=== PATIENT | female | born 1980 | race Caucasian/White ===

== ENCOUNTER 2022-05-16 09:56 | Outpatient (CLI) | payer OTHER ==
[2022-05-16 12:39] LABS: #Basophils 0.1 10x3/uL (0.0-0.2); #Eosinphils 0.2 10x3/uL (0.0-0.5); #Monocytes 0.5 10x3/uL (0.0-1.1); #Neutrophils 2.8 10x3/uL (1.5-8.4); %Eosinophils 3.1 % (0.0-6.0); %Lymphocytes 32.5 % (18.0-47.0); %Monocytes 8.7 % (0.0-10.0); %Neutrophils 54.3 % (40.0-75.0); Hemoglobin 10.5 g/dL (12.0-15.5); Mean Corpuscular HGB CONC 30.9 g/dL (32.0-36.0); Mean Corpuscular Hemoglobin 22.1 pg (27.0-33.0); Mean Corpuscular Volume 71.6 fl (81.6-98.3); Mean Platelet Volume 9.7 fl (7.4-10.4); Platelet Count 332 10x3/uL (150-450); Red Blood Cell (RBC) Count 4.75 10x6/uL (3.90-5.03); White Blood Cell (WBC) Count 5.2 10x3/uL (3.5-10.5)
[2022-05-16 13:05] LABS: Anion Gap 11 mmol/L (10-20); BUN (Urea Nitrogen) 11 mg/dL (7.0-18.7); Calc. Creatinine Clearance 0 mL/min (70-130); Calcium 9.4 mg/dL (7.8-10.44); Carbon Dioxide 20 mmol/L (22-29); Chloride 110 mmol/L (98-107); Estimated GFR 101; Glucose 81 mg/dL (70-105); Potassium 4.5 mmol/L (3.5-5.1); Sodium 136 mmol/L (136-145)
== END 2022-05-16 09:57 | disposition home or self-care (01) ==
LOC: CSHLAB 09:56
PROVIDERS: ATTEND Podiatrist Foot & Ankle Surgery
DX: Z01.812 Encounter for preprocedural laboratory examination (principal); M21.611 Bunion of right foot; M77.41 Metatarsalgia, right foot
CPT/HCPCS: 80048; 85025

== ENCOUNTER 2022-05-21 10:07 | Day surgery (SDC) | payer OTHER ==
[2022-05-21] MEDS ORDERED: Lidocaine 1% MPF 2 ML VIAL ONE (11:06)
[2022-05-21] MEDS ORDERED: Midazolam HCl 2 mg/2 ml Vial ONE ×2 (12:48→13:07)
[2022-05-21] MEDS ORDERED: Dexamethasone 4 mg/ml Vial ONE (12:57)
[2022-05-21] MEDS ORDERED: Neomycin-Polymyxin 1 ML AMP ONE (12:57)
[2022-05-21] MEDS ORDERED: Bupivacaine PF 0.5% 30 ML VIAL ONE (12:57)
[2022-05-21] MEDS ORDERED: Dexamethasone 20 MG/5 ML VIAL ONE (13:07)
[2022-05-21] MEDS ORDERED: PROPOFOL 20 ML ONE ×2 (13:07→13:27)
[2022-05-21] MEDS ORDERED: Ondansetron PF 4 MG/2 ML Vial ONE (13:07)
[2022-05-21] MEDS ORDERED: Ketorolac Tromethamine 30 MG/ML VIAL ONE (13:07)
[2022-05-21] MEDS ORDERED: Fentanyl 100 MCG/2 ML VIAL ONE ×3 (13:07→13:09)
[2022-05-21] MEDS ORDERED: Lidocaine 1% PF 5 ML VIAL ONE (13:08)
[2022-05-21 13:10] VITALS: BMI 32.5
[2022-05-21] MEDS ORDERED: CEFAZOLIN 2 GM VIAL ONE (13:13)
[2022-05-21] MEDS ORDERED: Ropivacaine 0.2% 550 ML 550 ML NERVE BLCK SCH (13:15)
[2022-05-21] MEDS ORDERED: Ondansetron PF 4 MG/2 ML Vial IVP PRN (13:15)
[2022-05-21] MEDS ORDERED: Zolpidem Tartrate 5 MG TAB PO PRN (13:15)
[2022-05-21] MEDS ORDERED: Promethazine HCl 25 MG/ML VIAL IM PRN (13:15)
[2022-05-21] MEDS ORDERED: Acetaminophen 500 MG TAB ONE (15:30)
== END 2022-05-21 15:52 | disposition home or self-care (01) ==
LOC: CSHSDC 10:07
PROVIDERS: ATTEND Podiatrist Foot & Ankle Surgery
PROC: 0QSN04Z Reposition Right Metatarsal with Internal Fixation Device, Open Approach (ICD-10-PCS; principal; 2022-05-21)
DX: M20.11 Hallux valgus (acquired), right foot (principal); M77.41 Metatarsalgia, right foot; M20.41 Other hammer toe(s) (acquired), right foot; M25.374 Other instability, right foot; M79.674 Pain in right toe(s); Z79.899 Other long term (current) drug therapy
CPT/HCPCS: A4306; C1713; C1769; J0690; J1100; J1885; J2250; J2405; J2704; J2795; J3010; S0020